=== PATIENT | male | born 1975 | race Caucasian/White ===

== ENCOUNTER 2017-02-01 06:02 | Emergency (ER) | payer OTHER ==
[~2017-02-01] VITALS: Ht 177.8 cm; Wt 75.0 kg
[~2017-02-01 06:02] MED LIST: DESYREL 50MG50 MG PO; MINIPRESS 1M1 MG/CAP PO; MOBIC15 MG PO; NEXIUM 40MG40 MG PO; PREDNISONE10 MG PO; PRIL40 PO; STIOLTO RESPIMAT4 GM IH; ULTRAM 50MG TAB50 MG PO; ZOFRAN8 MG PO
[2017-02-01 06:07] VITALS: TEMP 98
[2017-02-01] MEDS ORDERED: RT ADVAIR 528 DISKUS IH (06:15)
[2017-02-01] MEDS ORDERED: PROVENTIL0.09 MG/A1 IH (06:16)
[2017-02-01] MEDS ORDERED: ATIVAN 0.50.5 MG/TAB PO (06:17)
[2017-02-01 06:33] LABS: HEMATOCRIT 48.6 % (42.0-52.0); MEAN CELL VOLUME 90 fl (80.0-100.0); MEAN CORPUSCULAR HEMOGLOBIN 30 pg (27.0-31.0); MEAN CORPUSCULAR HGB CONC 33 g/dl (33.0-37.0); MEAN PLATELET VOLUME 8.8 fl (7.4-10.4); PLATELET COUNT 265 K/mm3 (130-400); RED BLOOD COUNT 5.39 M/mm3 (4.20-5.60); WHITE BLOOD COUNT 10.2 K/mm3 (4.8-10.8)
[2017-02-01 06:35] LABS: ADD PATHOLOGY DIFF REVIEW NO
[2017-02-01 06:42] LABS: ADJUSTED CALCIUM 8.8 mg/dL (8.4-10.2); ALANINE AMINOTRANSFERASE 70 U/L (21-72); ALBUMIN 5.5 gm/dL (3.5-5.0); ALKALINE PHOSPHATASE 73 U/L (50-136); ANION GAP 14 mmol/L (7-16); BLOOD UREA NITROGEN 6 mg/dL (9-20); CARBON DIOXIDE 25 mmol/L (22-30); CHLORIDE 95 mmol/L (98-107); CREATINE KINASE 84 U/L (55-170); CREATININE, serum 0.82 mg/dL (0.66-1.25); GLUCOSE 112 mg/dL (74-106); LIPASE 351 U/L (23-300); POTASSIUM 4.3 mmol/L (3.4-5.0); SODIUM 134 mmol/L (137-145); TOTAL PROTEIN 8.4 gm/dL (6.4-8.2)
[2017-02-01 06:53] LABS: B-TYPE NATRIURETIC PEPTIDE 65 pg/mL (0-125)
[2017-02-01 06:54] LABS: TROPONIN-I < 0.012 ng/mL (0.000-0.034)
[2017-02-01 07:33] LABS: BAND 12 % (0-10); EOSINOPHIL 6 % (0-4); LYMPHOCYTE 26 % (20.0-51.0); NEUTROPHILS 45 % (42.0-75.2); TOTAL CELLS COUNTED 100
[2017-02-01 07:34] LABS: PLATELET ESTIMATE NORMAL (NORMAL)
[2017-02-01] MEDS ORDERED: PROTONIX 40MG T40 MG PO (07:58)
[2017-02-01 08:05] VITALS: BP 129/81; PULSE 96
== END 2017-02-01 08:11 | disposition home or self-care (01) ==
LOC: COL.ER 06:02
PROVIDERS: Emergency Medicine
DX: K29.70 Gastritis, unspecified, without bleeding (principal); R06.00 Dyspnea, unspecified; J44.9 Chronic obstructive pulmonary disease, unspecified; F17.210 Nicotine dependence, cigarettes, uncomplicated; Z98.890 Other specified postprocedural states
CPT/HCPCS: C9113; J7030

== ENCOUNTER 2017-08-09 12:38 | Inpatient (IN) | payer OTHER ==
[~2017-08-09] VITALS: Ht 177.8 cm; Wt 75.0 kg
[~2017-08-09 12:38] MED LIST changes: +ATIVAN 0.50.5 MG/TAB PO; +PROTONIX 40MG T40 MG PO; +PROVENTIL0.09 MG/A1 IH; +RT ADVAIR 528 DISKUS IH
[2017-08-09 13:24] LABS: BASO # 0.1 (0.0-0.2); BASO % 0.6 % (0.0-2.0); EOS # 0.1 (0.0-0.7); EOS % 0.7 % (0-4.0); GRAN # 7.5 (1.4-6.5); GRAN % 69.9 % (42.2-75.2); HEMATOCRIT 43.4 % (42.0-52.0); HEMOGLOBIN 14.7 g/dl (13.5-18.0); LYMPH # 1.8 (1.2-3.4); LYMPH % 16.5 % (20.0-51.0); MEAN CELL VOLUME 86 fl (80.0-100.0); MEAN CORPUSCULAR HEMOGLOBIN 29 pg (27.0-31.0); MEAN CORPUSCULAR HGB CONC 34 g/dl (33.0-37.0); MEAN PLATELET VOLUME 8.5 fl (7.4-10.4); MONO # 1.3 (0.1-0.6); MONO % 11.8 % (1.7-9.3); PLATELET COUNT 242 K/mm3 (130-400); RED BLOOD COUNT 5.03 M/mm3 (4.20-5.60); REDCELL DISTRIBUTION WIDTH-CV 14.6 % (11.5-14.5)
[2017-08-09 13:26] LABS: INR 0.9 (0.8-3.0); PROTHROMBIN TIME 10.3 SECONDS (9.7-12.8)
[2017-08-09 13:29] LABS: PARTIAL THROMBOPLASTIN TIME 29.5 SECONDS (26.0-37.0)
[2017-08-09 13:32] LABS: ALANINE AMINOTRANSFERASE 107 U/L (21-72); ALBUMIN 4.3 gm/dL (3.5-5.0); ALKALINE PHOSPHATASE 71 U/L (50-136); ANION GAP 14 mmol/L (7-16); AST,SGOT 116 U/L (15-37); BILIRUBIN,TOTAL 1.2 mg/dL (0.0-1.0); BLOOD UREA NITROGEN 5 mg/dL (9-20); C-REACTIVE PROTEIN 0.7 mg/dL (0.0-0.9); CALCIUM 9.5 mg/dL (8.4-10.2); CARBON DIOXIDE 26 mmol/L (22-30); CHLORIDE 92 mmol/L (98-107); CREATININE, serum 0.61 mg/dL (0.66-1.25); GLUCOSE 105 mg/dL (74-106); POTASSIUM 3.5 mmol/L (3.4-5.0); SODIUM 132 mmol/L (137-145); TOTAL PROTEIN 7.4 gm/dL (6.4-8.2)
[2017-08-09 13:43] LABS: TROPONIN-I < 0.012 ng/mL (0.000-0.034)
[2017-08-09] MEDS ORDERED: ANORO IH (14:04)
[2017-08-09] MEDS ORDERED: ATIVAN 0.50.5 MG/TAB PO (16:31)
[2017-08-09 16:57] VITALS: BP 138/98; PULSE 62; TEMP 99
[2017-08-09 19:54] VITALS: BP 116/89; PULSE 72; TEMP 99
[2017-08-10 00:20] VITALS: BP 108/64; PULSE 72; TEMP 98.4
[2017-08-10 04:15] VITALS: BP 109/75; PULSE 88; TEMP 98.3
[2017-08-10 07:09] VITALS: BP 127/74; PULSE 81; TEMP 98.8
[2017-08-10 10:07] LABS: ALBUMIN 3.9 gm/dL (3.5-5.0); BILIRUBIN,TOTAL 1.9 mg/dL (0.0-1.0); CALCIUM 9.7 mg/dL (8.4-10.2); CREATININE, serum 0.64 mg/dL (0.66-1.25); POTASSIUM 4.3 mmol/L (3.4-5.0)
[2017-08-10 11:38] VITALS: BP 123/81; PULSE 73; TEMP 98.2
[2017-08-10 16:06] VITALS: BP 94/65; PULSE 81; TEMP 98.7
[2017-08-10 20:42] VITALS: BP 130/90; PULSE 75; TEMP 98
[2017-08-11 00:07] VITALS: BP 125/89; PULSE 89; TEMP 98.5
[2017-08-11 03:15] VITALS: BP 114/66; PULSE 97; TEMP 98.6
[2017-08-11 06:58] LABS: ALBUMIN 3.5 gm/dL (3.5-5.0); BILIRUBIN,TOTAL 1.5 mg/dL (0.0-1.0); CALCIUM 9.1 mg/dL (8.4-10.2); CREATININE, serum 0.73 mg/dL (0.66-1.25); POTASSIUM 4.2 mmol/L (3.4-5.0); TOTAL PROTEIN 6.1 gm/dL (6.4-8.2)
[2017-08-11 08:20] VITALS: BP 123/75; PULSE 79; TEMP 99.1
[2017-08-11] MEDS ORDERED: PROTONIX 40MG T40 MG PO (09:20)
== END 2017-08-11 12:00 | disposition home or self-care (01) | DRG 439 ==
LOC: COL.ER 12:38 → MEDICAL 15:17
PROVIDERS: Family Medicine; Physician Assistant
DX: K85.20 Alcohol induced acute pancreatitis without necrosis or infection (principal); E87.1 Hypo-osmolality and hyponatremia; K27.9 Peptic ulcer, site unspecified, unspecified as acute or chronic, without hemorrhage or perforation; F10.10 Alcohol abuse, uncomplicated; F17.210 Nicotine dependence, cigarettes, uncomplicated; F43.12 Post-traumatic stress disorder, chronic
CPT/HCPCS: 99223-AI; 99233-AI; J1170; J2270; J7120; Q9967

== ENCOUNTER 2018-01-05 14:57 | Observation (INO) | payer OTHER ==
[~2018-01-05] VITALS: Ht 177.8 cm; Wt 72.7 kg
[2018-01-05 00:23] VITALS: BP 140/59
[~2018-01-05 14:57] MED LIST changes: +ANORO IH; +NORCO 325 MG-51 TAB PO; +ZOFRAN 4MG T4 MG/TAB PO
[2018-01-05 15:41] LABS: BASO # 0.1 (0.0-0.2); BASO % 0.9 % (0.0-2.0); EOS # 0.5 (0.0-0.7); EOS % 4.6 % (0-4.0); GRAN # 5.5 (1.4-6.5); GRAN % 55.9 % (42.2-75.2); HEMATOCRIT 43.1 % (42.0-52.0); HEMOGLOBIN 14.5 g/dl (13.5-18.0); LYMPH # 2.7 (1.2-3.4); LYMPH % 27.9 % (20.0-51.0); MEAN CELL VOLUME 89 fl (80.0-100.0); MEAN CORPUSCULAR HEMOGLOBIN 30 pg (27.0-31.0); MEAN CORPUSCULAR HGB CONC 34 g/dl (33.0-37.0); MONO % 10.2 % (1.7-9.3); PLATELET COUNT 484 K/mm3 (130-400); RED BLOOD COUNT 4.86 M/mm3 (4.20-5.60); REDCELL DISTRIBUTION WIDTH-CV 13.9 % (11.5-14.5)
[2018-01-05 15:44] LABS: PROTHROMBIN TIME 10.9 SECONDS (9.7-12.8)
[2018-01-05 15:49] LABS: ALANINE AMINOTRANSFERASE 57 U/L (21-72); ALBUMIN 4.6 gm/dL (3.5-5.0); ALCOHOL(ethanol),MEDICAL 78 mg/dL; ALKALINE PHOSPHATASE 90 U/L (50-136); ANION GAP 11 mmol/L (7-16); AST,SGOT 43 U/L (15-37); BILIRUBIN,TOTAL 0.7 mg/dL (0.0-1.0); BLOOD UREA NITROGEN 4 mg/dL (9-20); CALCIUM 9.7 mg/dL (8.4-10.2); CARBON DIOXIDE 27 mmol/L (22-30); CHLORIDE 102 mmol/L (98-107); CREATINE KINASE 72 U/L (55-170); CREATININE, serum 0.59 mg/dL (0.66-1.25); GLUCOSE 94 mg/dL (74-106); SODIUM 139 mmol/L (137-145); TOTAL PROTEIN 7.6 gm/dL (6.4-8.2)
[2018-01-05 16:02] LABS: TROPONIN-I < 0.012 ng/mL (0.000-0.034)
[2018-01-05 16:16] LABS: LIPASE 23560 U/L (23-300)
[2018-01-05 17:53] VITALS: BP 134/90; PULSE 91; TEMP 98.6
[2018-01-05 19:30] VITALS: BP 160/108; PULSE 83; TEMP 98.7
[2018-01-06 01:13] VITALS: BP 122/7; BP 122/70; PULSE 96; TEMP 99.3
[2018-01-06 04:13] VITALS: BP 128/87; PULSE 99; TEMP 98.9
[2018-01-06 06:45] LABS: BASO # 0.1 (0.0-0.2); BASO % 0.7 % (0.0-2.0); EOS # 0.3 (0.0-0.7); GRAN # 7.3 (1.4-6.5); GRAN % 69.5 % (42.2-75.2); HEMATOCRIT 39.2 % (42.0-52.0); HEMOGLOBIN 12.8 g/dl (13.5-18.0); LYMPH # 1.7 (1.2-3.4); LYMPH % 16.5 % (20.0-51.0); MEAN CELL VOLUME 90 fl (80.0-100.0); MEAN CORPUSCULAR HEMOGLOBIN 29 pg (27.0-31.0); MEAN CORPUSCULAR HGB CONC 33 g/dl (33.0-37.0); MEAN PLATELET VOLUME 8.3 fl (7.4-10.4); MONO % 9.9 % (1.7-9.3); RED BLOOD COUNT 4.35 M/mm3 (4.20-5.60); REDCELL DISTRIBUTION WIDTH-CV 14.1 % (11.5-14.5)
[2018-01-06 07:02] LABS: PLATELET COUNT 357 K/mm3 (130-400)
[2018-01-06 07:11] LABS: ALANINE AMINOTRANSFERASE 48 U/L (21-72); ALBUMIN 3.7 gm/dL (3.5-5.0); ALKALINE PHOSPHATASE 74 U/L (50-136); ANION GAP 7 mmol/L (7-16); AST,SGOT 29 U/L (15-37); BILIRUBIN,TOTAL 0.9 mg/dL (0.0-1.0); BLOOD UREA NITROGEN 5 mg/dL (9-20); CALCIUM 8.6 mg/dL (8.4-10.2); CARBON DIOXIDE 26 mmol/L (22-30); CHLORIDE 106 mmol/L (98-107); CHOLESTEROL 136 mg/dL (120-200); CHOLESTEROL RISK RATIO 3.4; CREATININE, serum 0.67 mg/dL (0.66-1.25); GLUCOSE 84 mg/dL (74-106); HDL CHOLESTEROL 39 mg/dL; LDL CHOLESTEROL 47 mg/dL; POTASSIUM 4.1 mmol/L (3.4-5.0); SODIUM 138 mmol/L (137-145); TOTAL PROTEIN 6.2 gm/dL (6.4-8.2); TRIGLYCERIDE 251 mg/dL
[2018-01-06 07:20] LABS: TROPONIN-I < 0.012 ng/mL (0.000-0.034)
[2018-01-06 07:33] LABS: COLLECTION METHOD CLEAN CATCH
[2018-01-06 07:34] LABS: LIPASE 8867 U/L (23-300)
[2018-01-06 07:41] VITALS: BP 123/94; PULSE 93; TEMP 98.7
[2018-01-06 07:47] LABS: MUCOUS Present /lpf; PH 5 (5-8); SQUAMOUS EPITHELIAL None Seen /hpf; URINE APPEARANCE Clear; URINE BACTERIA Rare /hpf; URINE BILIRUBIN Negative (NEGATIVE); URINE BLOOD Negative (NEGATIVE); URINE COLOR Straw; URINE GLUCOSE Negative (NEGATIVE); URINE KETONE 1+ (NEGATIVE); URINE LEUKOCYTE ESTERASE Negative (NEGATIVE); URINE NITRATE Negative (NEGATIVE); URINE PROTEIN(semi-quant) Negative (NEGATIVE); URINE RBC None Seen /hpf; URINE UROBILINOGEN Negative (NEGATIVE)
[2018-01-06] MEDS ORDERED: MULTI VITAMINS1 TAB PO (08:54)
[2018-01-06] MEDS ORDERED: THIAMINE 1100 MG/TAB PO (08:54)
[2018-01-06] MEDS ORDERED: FOLIC ACID 11 MG/TA1 PO (08:54)
[2018-01-06 10:03] VITALS: BP 133/91; PULSE 86; TEMP 98.7
[2018-01-06 12:13] VITALS: BP 133/94; PULSE 86; TEMP 99
[2018-01-06 12:46] VITALS: BP 109/74; PULSE 82; TEMP 97.8
== END 2018-01-06 16:45 | disposition home or self-care (01) ==
LOC: COL.ER 14:57 → MEDICAL 16:34 → EDBEDREQ 17:05 → MEDICAL 01-06 16:45
PROVIDERS: Emergency Medicine; Physician Assistant
DX: R07.89 Other chest pain (principal); K85.90 Acute pancreatitis without necrosis or infection, unspecified; K76.0 Fatty (change of) liver, not elsewhere classified; F10.10 Alcohol abuse, uncomplicated; Y90.3 Blood alcohol level of 60-79 mg/100 ml; J43.9 Emphysema, unspecified; F17.210 Nicotine dependence, cigarettes, uncomplicated; Z23 Encounter for immunization
CPT/HCPCS: G0378; J1170; J1650; J2060; J2270; J2405; J3411; J7030; Q9967

== ENCOUNTER → 2018-04-22 | Outpatient (CLI) | payer OTHER ==
[~2018-04-22] MED LIST changes: +FOLIC ACID 11 MG/TA1 PO; +MULTI VITAMINS1 TAB PO; +THIAMINE 1100 MG/TAB PO
== END ==
LOC: COL.RAD 09:42
DX: K85.90 Acute pancreatitis without necrosis or infection, unspecified (principal)

== ENCOUNTER → 2018-05-02 | Outpatient (CLI) | payer OTHER | LOC: COL.RAD 06:41 | DX: R10.11 Right upper quadrant pain (principal) | CPT/HCPCS: A9537 ==

== ENCOUNTER 2018-09-09 13:18 | Inpatient (IN) | payer OTHER ==
[~2018-09-09] VITALS: Ht 177.8 cm; Wt 67.3 kg
[2018-09-09 14:07] LABS: BASO # 0.1 (0.0-0.2); BASO % 0.6 % (0.0-2.0); EOS # 0.3 (0.0-0.7); GRAN % 70.5 % (42.2-75.2); HEMATOCRIT 44.2 % (42.0-52.0); HEMOGLOBIN 14.9 g/dl (13.5-18.0); LYMPH % 15.3 % (20.0-51.0); MEAN CELL VOLUME 85 fl (80.0-100.0); MEAN CORPUSCULAR HEMOGLOBIN 29 pg (27.0-31.0); MEAN CORPUSCULAR HGB CONC 34 g/dl (33.0-37.0); MEAN PLATELET VOLUME 8.4 fl (7.4-10.4); MONO # 1.4 (0.1-0.6); PLATELET COUNT 338 K/mm3 (130-400); RED BLOOD COUNT 5.19 M/mm3 (4.20-5.60); REDCELL DISTRIBUTION WIDTH-CV 14.9 % (11.5-14.5)
[2018-09-09 14:27] LABS: ALANINE AMINOTRANSFERASE 44 U/L (21-72); ALBUMIN 4.4 gm/dL (3.5-5.0); ALKALINE PHOSPHATASE 137 U/L (50-136); ANION GAP 12 mmol/L (7-16); AST,SGOT 78 U/L (15-37); BILIRUBIN,TOTAL 0.6 mg/dL (0.0-1.0); BLOOD UREA NITROGEN 6 mg/dL (9-20); C-REACTIVE PROTEIN 0.9 mg/dL (0.0-0.9); CALCIUM 9.4 mg/dL (8.4-10.2); CARBON DIOXIDE 26 mmol/L (22-30); CHLORIDE 95 mmol/L (98-107); CREATININE, serum 0.54 (0.66-1.25); GLUCOSE 85 mg/dL (74-106); LIPASE 1040 U/L (23-300); SODIUM 133 mmol/L (137-145); TOTAL PROTEIN 7.4 gm/dL (6.4-8.2)
[2018-09-09 14:28] LABS: ALCOHOL(ethanol),MEDICAL < 10 mg/dL
[2018-09-09 14:36] LABS: TROPONIN-I < 0.012 ng/mL (0.000-0.035)
[2018-09-09 17:18] VITALS: BP 158/92; PULSE 72; TEMP 98.3
[2018-09-09 19:30] VITALS: BP 149/96; PULSE 86; TEMP 98.3
--- NOTE | 2018-09-09 20:00 | NUR ---
Pt up to room 310 at 1745. Med rec, allergies and admission completed. Pt c/o of abdominal pain over entire abdomen. Rates pain 11/01. RAC IV patent, IVF fluids started at 200 ml/hr. 4 MG morphine administered per MAR. Pt on room air. Denies chest pain, SOB, dizziness, vomiting, some nausea. Pt independent in room. No skin issues noted. Denied nicotine patch. No other needs at this time. Call light within reach. Report given to JOVITA Angel to resume care.
[2018-09-09 23:30] VITALS: BP 140/93; PULSE 72; TEMP 97.5
--- NOTE | 2018-09-10 02:47 | NUR ---
Pt has had a quiet night up thru now. He is up in room to BR without assist. States he has had rested in short intervals. IVF cont at 200mL/hr in R AC. Call light in reach.
[2018-09-10 03:17] VITALS: BP 131/92; PULSE 94; TEMP 98.2
--- NOTE | 2018-09-10 04:30 | NUR ---
Pt calls and request med for abdominal pain rated 7/10. Morphine 4mg IV given.
[2018-09-10 06:28] LABS: BASO # 0.1 (0.0-0.2); BASO % 0.6 % (0.0-2.0); EOS # 0.2 (0.0-0.7); GRAN # 7.9 (1.4-6.5); GRAN % 75.7 % (42.2-75.2); HEMATOCRIT 45.3 % (42.0-52.0); LYMPH # 1.1 (1.2-3.4); LYMPH % 10.7 % (20.0-51.0); MEAN CELL VOLUME 86 fl (80.0-100.0); MEAN CORPUSCULAR HEMOGLOBIN 29 pg (27.0-31.0); MEAN CORPUSCULAR HGB CONC 33 g/dl (33.0-37.0); MEAN PLATELET VOLUME 8.7 fl (7.4-10.4); MONO # 1.1 (0.1-0.6); MONO % 10.6 % (1.7-9.3); PLATELET COUNT 309 K/mm3 (130-400); RED BLOOD COUNT 5.26 M/mm3 (4.20-5.60); REDCELL DISTRIBUTION WIDTH-CV 14.7 % (11.5-14.5)
[2018-09-10 06:38] LABS: CALCIUM 8.7 mg/dL (8.4-10.2); CREATININE, serum 0.59 (0.66-1.25); POTASSIUM 3.7 mmol/L (3.4-5.0)
[2018-09-10 08:15] VITALS: BP 133/89; PULSE 89; TEMP 98.1
--- NOTE | 2018-09-10 08:30 | NUR ---
Assessment complete. Pt sitting up in bed, A&O x 4. Breath sounds CTAB. BS active x 4. Pt reports pain to epigastric region 7 out of 10 on pain scale, PRN pain medication administered per orders. IVF's infusing per orders through right AC site without s/s of complications. POC reviewed with pt. No further needs reported. Call light in reach.
--- NOTE | 2018-09-10 10:55 | NUR ---
Plan: Patient plans t retrun home with [facility] as care support . Assess: Sw met with patient and in room. Patient gave verbal auth. to speak in front of . Patient reports that they reside locally and the PCP is Dr. Cerda. Patient reports that her uses [facility] for RX, and DPOA is . Patient denies home health care. Patient denies needing any HHS. Action: SW edcuated patient and on resources. NO additional needs identified. is to transport patient home.
[2018-09-10 12:49] VITALS: BP 141/96; PULSE 88; TEMP 98.6
[2018-09-10 16:11] VITALS: BP 139/92; PULSE 78; TEMP 98.8
--- NOTE | 2018-09-10 18:45 | NUR ---
Report with JOVITA Mendoza. Pt sitting up in bed, requests pain medication for pain 8 out of 10 in epigastric region. Medication administered per orders. Pt has had water, coffee, jello and broth, denies c/o following advancing diet. IVF's infusing per orders through right AC site without s/s of complications. No further needs reported. Call light in reach.
[2018-09-10 20:01] VITALS: BP 145/100; PULSE 91; TEMP 99.6
--- NOTE | 2018-09-10 20:34 | NUR ---
Resting in bed. Assessment complete. Lungs clear. Heart sounds normal. Bowels active x4. Pulses strong throughout. No edema noted. Rating ABD pain 4/10. Denies needs at this time. Call light in reach.
--- NOTE | 2018-09-10 23:36 | NUR ---
Resting in bed. Denies needs. Call light in reach.
[2018-09-11 00:43] VITALS: BP 133/98; PULSE 87; TEMP 98.4
--- NOTE | 2018-09-11 02:00 | NUR ---
Out getting coffee. Denies needs.
[2018-09-11 05:08] VITALS: BP 131/81; PULSE 94; TEMP 98.1
--- NOTE | 2018-09-11 05:47 | NUR ---
Patient required x1 dose of morphine for ABD pain. Otherwise uneventful night. Resting in bed this AM. Denies needs. Call light in reach.
[2018-09-11 06:19] LABS: BASO # 0.1 (0.0-0.2); BASO % 0.7 % (0.0-2.0); EOS # 0.3 (0.0-0.7); EOS % 3.4 % (0-4.0); GRAN # 5.5 (1.4-6.5); GRAN % 65.2 % (42.2-75.2); HEMATOCRIT 43.8 % (42.0-52.0); HEMOGLOBIN 14.2 g/dl (13.5-18.0); LYMPH # 1.6 (1.2-3.4); LYMPH % 18.9 % (20.0-51.0); MEAN CELL VOLUME 87 fl (80.0-100.0); MEAN CORPUSCULAR HEMOGLOBIN 28 pg (27.0-31.0); MEAN CORPUSCULAR HGB CONC 32 g/dl (33.0-37.0); MEAN PLATELET VOLUME 9.4 fl (7.4-10.4); MONO % 11.4 % (1.7-9.3); PLATELET COUNT 278 K/mm3 (130-400); RED BLOOD COUNT 5.04 M/mm3 (4.20-5.60); REDCELL DISTRIBUTION WIDTH-CV 14.7 % (11.5-14.5)
[2018-09-11 06:28] LABS: ALBUMIN 3.6 gm/dL (3.5-5.0); BILIRUBIN,TOTAL 0.9 mg/dL (0.0-1.0); CALCIUM 8.4 mg/dL (8.4-10.2); CREATININE, serum 0.58 (0.66-1.25); TOTAL PROTEIN 6.3 gm/dL (6.4-8.2)
--- NOTE | 2018-09-11 06:44 | NUR ---
Report given to JOVITA Barney.
--- NOTE | 2018-09-11 08:30 | NUR ---
Assessment complete. Pt ambulating in room and hallway, denies pain or needs at this time. IVF's infusing per orders through right AC site without s/s of complications. Pt anxious for discharge today. POC reviewed with pt. Call light in reach.
[2018-09-11 08:38] VITALS: BP 138/87; PULSE 92; TEMP 98.7
--- NOTE | 2018-09-11 10:45 | NUR ---
Pt reports eating a full breakfast, denies nausea or worsening pain, "feels ready to go home." Doctor notified.
--- NOTE | 2018-09-11 12:50 | NUR ---
Discharge instructions reviewed with pt regarding diet recommendations and follow-up appointment. Pt verbalizes understanding, discharged home, ambulates out of facility accompanied by this nurse and pt's .
== END 2018-09-11 13:00 | disposition home or self-care (01) | DRG 439 ==
LOC: COL.ER 13:18 → MEDICAL 15:26
PROVIDERS: Nurse Practitioner Family; Physician Assistant; ADMIT Student in an Organized Health Care Education/Training Program
DX: K85.20 Alcohol induced acute pancreatitis without necrosis or infection (principal); K86.3 Pseudocyst of pancreas; J44.9 Chronic obstructive pulmonary disease, unspecified; Z90.49 Acquired absence of other specified parts of digestive tract; K86.1 Other chronic pancreatitis; F17.210 Nicotine dependence, cigarettes, uncomplicated; K21.9 Gastro-esophageal reflux disease without esophagitis
CPT/HCPCS: 99222-AI; 99231-AI; 99239; C9113; J1650; J2270; J2405; J7030; Q9967

== ENCOUNTER 2018-09-20 12:32 | Emergency (ER) | payer OTHER ==
[~2018-09-20] VITALS: Ht 177.8 cm; Wt 66.8 kg
[2018-09-20 12:42] VITALS: TEMP 97
[2018-09-20] MEDS ORDERED: ADVIL200 MG PO (13:08)
[2018-09-20 13:10] LABS: BASO # 0.1 (0.0-0.2); BASO % 1.1 % (0.0-2.0); EOS # 0.2 (0.0-0.7); EOS % 1.5 % (0-4.0); GRAN # 8.3 (1.4-6.5); GRAN % 65.7 % (42.2-75.2); HEMATOCRIT 45.5 % (42.0-52.0); LYMPH # 2.5 (1.2-3.4); LYMPH % 20.2 % (20.0-51.0); MEAN CELL VOLUME 85 fl (80.0-100.0); MEAN CORPUSCULAR HEMOGLOBIN 28 pg (27.0-31.0); MEAN CORPUSCULAR HGB CONC 33 g/dl (33.0-37.0); MEAN PLATELET VOLUME 8.2 fl (7.4-10.4); MONO # 1.4 (0.1-0.6); PLATELET COUNT 421 K/mm3 (130-400); RED BLOOD COUNT 5.37 M/mm3 (4.20-5.60)
[2018-09-20 13:19] LABS: ALANINE AMINOTRANSFERASE 63 U/L (21-72); ALBUMIN 4.6 gm/dL (3.5-5.0); ALKALINE PHOSPHATASE 129 U/L (50-136); ANION GAP 15 mmol/L (7-16); AST,SGOT 114 U/L (15-37); BILIRUBIN,TOTAL 0.7 mg/dL (0.0-1.0); BLOOD UREA NITROGEN 4 mg/dL (9-20); C-REACTIVE PROTEIN 0.9 mg/dL (0.0-0.9); CALCIUM 9.4 mg/dL (8.4-10.2); CARBON DIOXIDE 23 mmol/L (22-30); CHLORIDE 96 mmol/L (98-107); CREATININE, serum 0.55 (0.66-1.25); GLUCOSE 81 mg/dL (74-106); LIPASE 252 U/L (23-300); POTASSIUM 4.3 mmol/L (3.4-5.0); SODIUM 133 mmol/L (137-145); TOTAL PROTEIN 7.6 gm/dL (6.4-8.2)
[2018-09-20 13:34] LABS: TROPONIN-I < 0.012 ng/mL (0.000-0.035)
[2018-09-20 14:40] LABS: COLLECTION METHOD CLEAN CATCH
[2018-09-20 14:47] LABS: PH 5 (5-8); SQUAMOUS EPITHELIAL None Seen /hpf; URINE APPEARANCE Clear; URINE BACTERIA None Seen /hpf; URINE BILIRUBIN Negative (NEGATIVE); URINE BLOOD Negative (NEGATIVE); URINE COLOR Straw; URINE GLUCOSE Negative (NEGATIVE); URINE KETONE Negative (NEGATIVE); URINE LEUKOCYTE ESTERASE Negative (NEGATIVE); URINE NITRATE Negative (NEGATIVE); URINE PROTEIN(semi-quant) Negative (NEGATIVE); URINE RBC 0-2 /hpf; URINE UROBILINOGEN Negative (NEGATIVE)
[2018-09-20] MEDS ORDERED: ZOFRAN 4MG T4 MG/TAB PO (16:22)
[2018-09-20] MEDS ORDERED: NORCO 325 MG-51 TAB PO (16:22)
[2018-09-20 17:15] VITALS: BP 152/109; PULSE 96
== END 2018-09-20 17:17 | disposition home or self-care (01) ==
LOC: COL.ER 12:32
PROVIDERS: Family Medicine
DX: R10.13 Epigastric pain (principal); F17.210 Nicotine dependence, cigarettes, uncomplicated; F10.10 Alcohol abuse, uncomplicated; Z87.19 Personal history of other diseases of the digestive system; Y90.9 Presence of alcohol in blood, level not specified
CPT/HCPCS: J2270; J2405; J7030; Q9967

== ENCOUNTER 2018-10-14 05:58 | Day surgery (SDC) | payer OTHER ==
[~2018-10-14] VITALS: Ht 177.8 cm; Wt 66.9 kg
[~2018-10-14 05:58] MED LIST changes: +ADVIL200 MG PO
[2018-10-14 06:55] VITALS: BP 117/88; PULSE 101; TEMP 98.3
[2018-10-14 07:50] VITALS: BP 119/83; PULSE 98; TEMP 98.2
[2018-10-14 08:05] VITALS: BP 112/83; PULSE 97
[2018-10-14 08:15] VITALS: BP 105/86; PULSE 94
[2018-10-14 08:30] VITALS: BP 127/88; PULSE 99
[2018-10-14 08:39] VITALS: BP 103/67; PULSE 89
--- NOTE | 2018-10-14 09:25 | NUR ---
PT RETURNED FROM ENDOSCOPY TREATMENT ROOM INTO BAY 1 PER CART. PT A/OX3. DENIES PAIN AND OR NAUSEA. SITTING UP IN CHAIR. VSS. DENIES SORE THROAT. REQUESTS COFFEE. TOLERATE SIPS WELL. WILL MONITOR
--- NOTE | 2018-10-14 09:31 | NUR ---
PT UP AND AMBULATED TO THE BATHROOM. TOLERATED ACTIVITY WELL. DENIES WANTING ANYTHING FURTHER TO EAT, DID REQUEST MORE HOT COFFEE. DC'D IV TO RIGHT FOREARM, PT TOLERATED WELL. DISCHARGE INSTRUCTIONS GIVEN TO PT, PT VOICES UNDESTANDING. QUESTIONS ANSWERED WITH UNDERSTANDING. , NATY CALLED AND MET PATIENT AT PATIENT ENTRANCE. PT AMBULATED AND DC'D TO FAMILY VEHICLE. VSS, DENIES PAIN OR NAUSEA.
== END 2018-10-14 09:55 | disposition home or self-care (01) ==
LOC: SDCO 05:58
DX: D12.3 Benign neoplasm of transverse colon (principal); K64.1 Second degree hemorrhoids; R10.13 Epigastric pain; J43.9 Emphysema, unspecified; Z90.49 Acquired absence of other specified parts of digestive tract; Z79.899 Other long term (current) drug therapy
CPT/HCPCS: J2250; J3010; J7030

== ENCOUNTER 2018-11-14 10:17 | Emergency (ER) | payer OTHER ==
[~2018-11-14] VITALS: Ht 177.8 cm; Wt 64.5 kg
[2018-11-14 10:21] VITALS: TEMP 98.3
[2018-11-14 10:39] LABS: HEMATOCRIT 46.3 % (42.0-52.0); HEMOGLOBIN 15.4 g/dl (13.5-18.0); MEAN CELL VOLUME 87 fl (80.0-100.0); MEAN CORPUSCULAR HEMOGLOBIN 29 pg (27.0-31.0); MEAN CORPUSCULAR HGB CONC 33 g/dl (33.0-37.0); MEAN PLATELET VOLUME 8.1 fl (7.4-10.4); PLATELET COUNT 398 K/mm3 (130-400); RED BLOOD COUNT 5.34 M/mm3 (4.20-5.60); REDCELL DISTRIBUTION WIDTH-CV 15.3 % (11.5-14.5)
[2018-11-14 10:50] LABS: ALANINE AMINOTRANSFERASE 16 U/L (21-72); ALBUMIN 4.7 gm/dL (3.5-5.0); ALKALINE PHOSPHATASE 78 U/L (50-136); ANION GAP 11 mmol/L (7-16); AST,SGOT 29 U/L (15-37); BLOOD UREA NITROGEN 4 mg/dL (9-20); CALCIUM 9.6 mg/dL (8.4-10.2); CARBON DIOXIDE 29 mmol/L (22-30); CHLORIDE 95 mmol/L (98-107); CREATININE, serum 0.55 (0.66-1.25); GLUCOSE 118 mg/dL (74-106); POTASSIUM 3.9 mmol/L (3.4-5.0); SODIUM 136 mmol/L (137-145); TOTAL PROTEIN 7.5 gm/dL (6.4-8.2)
[2018-11-14 10:56] LABS: LYMPHOCYTE 15 % (20.0-51.0); NEUTROPHILS 77 % (42.0-75.2); PLATELET ESTIMATE NORMAL (NORMAL)
[2018-11-14 11:01] LABS: TROPONIN-I < 0.012 ng/mL (0.000-0.035)
[2018-11-14 11:13] LABS: LIPASE 9028 U/L (23-300)
[2018-11-14] MEDS ORDERED: NORCO 325 MG-51 TAB PO (14:22)
[2018-11-14 14:47] VITALS: BP 137/99; PULSE 91
== END 2018-11-14 14:47 | disposition home or self-care (01) ==
LOC: COL.ER 10:17
PROVIDERS: Nurse Practitioner
DX: K85.90 Acute pancreatitis without necrosis or infection, unspecified (principal); F43.10 Post-traumatic stress disorder, unspecified; Z98.890 Other specified postprocedural states; F17.210 Nicotine dependence, cigarettes, uncomplicated
CPT/HCPCS: C9113; J2270; J2405; J7030

== ENCOUNTER 2018-12-08 05:54 | Emergency (ER) | payer OTHER ==
[~2018-12-08] VITALS: Ht 177.8 cm; Wt 66.8 kg
[2018-12-08 05:56] VITALS: TEMP 97.2
[2018-12-08 06:30] LABS: BASO # 0.1 (0.0-0.2); BASO % 0.4 % (0.0-2.0); EOS # 0.1 (0.0-0.7); EOS % 0.6 % (0-4.0); GRAN # 13.1 (1.4-6.5); GRAN % 80.4 % (42.2-75.2); HEMATOCRIT 46.4 % (42.0-52.0); LYMPH # 1.8 (1.2-3.4); MEAN CELL VOLUME 88 fl (80.0-100.0); MEAN CORPUSCULAR HEMOGLOBIN 29 pg (27.0-31.0); MEAN CORPUSCULAR HGB CONC 32 g/dl (33.0-37.0); MEAN PLATELET VOLUME 8.3 fl (7.4-10.4); MONO # 1.2 (0.1-0.6); MONO % 7.2 % (1.7-9.3); PLATELET COUNT 412 K/mm3 (130-400); RED BLOOD COUNT 5.25 M/mm3 (4.20-5.60); REDCELL DISTRIBUTION WIDTH-CV 14.7 % (11.5-14.5)
[2018-12-08 06:37] LABS: ALBUMIN 4.7 gm/dL (3.5-5.0); BILIRUBIN,TOTAL 0.6 mg/dL (0.0-1.0); CALCIUM 9.5 mg/dL (8.4-10.2); CREATININE, serum 0.54 (0.66-1.25); TOTAL PROTEIN 7.7 gm/dL (6.4-8.2)
[2018-12-08 07:09] LABS: C-REACTIVE PROTEIN 0.7 mg/dL (0.0-0.9)
[2018-12-08 08:34] LABS: INR 0.9 (0.8-3.0); PROTHROMBIN TIME 10.7 SECONDS (9.7-12.8)
[2018-12-08 08:36] LABS: PARTIAL THROMBOPLASTIN TIME 28.5 SECONDS (26.0-37.0)
[2018-12-08 09:45] VITALS: BP 147/106; PULSE 91
== END 2018-12-08 09:58 | disposition short-term general hospital (02) ==
LOC: COL.ER 05:54
PROVIDERS: Emergency Medicine
DX: K85.90 Acute pancreatitis without necrosis or infection, unspecified (principal); K86.3 Pseudocyst of pancreas; I81 Portal vein thrombosis; F17.210 Nicotine dependence, cigarettes, uncomplicated; Z87.442 Personal history of urinary calculi; Z90.49 Acquired absence of other specified parts of digestive tract
CPT/HCPCS: J1170; J1644; J2270; J2405; J7030; Q9967

== ENCOUNTER → 2019-01-31 | Outpatient (CLI) | payer OTHER | LOC: COL.RAD 10:01 | DX: K85.20 Alcohol induced acute pancreatitis without necrosis or infection (principal); K63.89 Other specified diseases of intestine; N32.89 Other specified disorders of bladder | CPT/HCPCS: Q9967 ==

== ENCOUNTER → 2019-05-08 | Outpatient (CLI) | payer OTHER | LOC: COL.RAD 11:12 | DX: K85.20 Alcohol induced acute pancreatitis without necrosis or infection (principal); N40.0 Benign prostatic hyperplasia without lower urinary tract symptoms; N32.89 Other specified disorders of bladder | CPT/HCPCS: Q9967 ==

== ENCOUNTER 2019-11-14 12:39 | Observation (INO) | payer OTHER ==
[~2019-11-14] VITALS: Ht 177.8 cm; Wt 69.1 kg
[2019-11-14 13:11] LABS: BASO # 0.1 (0.0-0.2); BASO % 0.6 % (0.0-2.0); EOS # 0.5 (0.0-0.7); EOS % 2.7 % (0-4.0); GRAN % 67.3 % (42.2-75.2); HEMATOCRIT 47.1 % (42.0-52.0); HEMOGLOBIN 15.1 g/dl (13.5-18.0); LYMPH # 3.7 (1.2-3.4); LYMPH % 20.6 % (20.0-51.0); MEAN CELL VOLUME 81 fl (80.0-100.0); MEAN CORPUSCULAR HEMOGLOBIN 26 pg (27.0-31.0); MEAN CORPUSCULAR HGB CONC 32 g/dl (33.0-37.0); MONO # 1.5 (0.1-0.6); MONO % 8.2 % (1.7-9.3); PLATELET COUNT 405 K/mm3 (130-400); REDCELL DISTRIBUTION WIDTH-CV 15.5 % (11.5-14.5)
[2019-11-14 13:21] LABS: INR 1.1 (0.8-3.0); PROTHROMBIN TIME 11.9 SECONDS (9.7-12.8)
[2019-11-14 13:24] LABS: PARTIAL THROMBOPLASTIN TIME 36.3 SECONDS (26.0-37.0)
[2019-11-14 13:28] LABS: ALANINE AMINOTRANSFERASE 21 U/L (4-49); ALBUMIN 4.9 gm/dL (3.5-5.0); ALKALINE PHOSPHATASE 89 U/L (50-136); ANION GAP 11 mmol/L (7-16); AST,SGOT 39 U/L (15-37); BLOOD UREA NITROGEN 8 mg/dL (9-20); C-REACTIVE PROTEIN 1.5 mg/dL (0.0-0.9); CALCIUM 9.7 mg/dL (8.4-10.2); CARBON DIOXIDE 27 mmol/L (22-30); CHLORIDE 96 mmol/L (98-107); CREATININE, serum 0.66 (0.66-1.25); GLUCOSE 104 mg/dL (74-106); LIPASE 633 U/L (23-300); SODIUM 134 mmol/L (137-145); TOTAL PROTEIN 8.5 gm/dL (6.4-8.2)
[2019-11-14 13:40] LABS: TROPONIN-I < 0.012 ng/mL (0.000-0.035)
[2019-11-14 17:10] VITALS: BP 127/73; PULSE 85
--- NOTE | 2019-11-14 18:52 | NUR ---
Report received from JOVITA Spencer. Pt lying in bed, denies needs at this time. Will continue to monitor.
[2019-11-14 20:04] LABS: COLLECTION METHOD CLEAN CATCH
[2019-11-14 20:13] LABS: PH 6 (5-8); SQUAMOUS EPITHELIAL 0-2 /hpf; URINE APPEARANCE Clear; URINE BACTERIA None Seen /hpf; URINE BILIRUBIN Negative (NEGATIVE); URINE BLOOD Negative (NEGATIVE); URINE COLOR Yellow; URINE GLUCOSE Negative (NEGATIVE); URINE KETONE Negative (NEGATIVE); URINE LEUKOCYTE ESTERASE Negative (NEGATIVE); URINE NITRATE Negative (NEGATIVE); URINE PROTEIN(semi-quant) Negative (NEGATIVE); URINE RBC 0-2 /hpf; URINE UROBILINOGEN Negative (NEGATIVE)
--- NOTE | 2019-11-14 20:16 | NUR ---
Pt assessment completed and charted, meds/allergies/pharmacy all completed. Pt A&O, independent in room, on room air, breathing is even and unlabored, LS cta, BS active X4, pulses strong bilateraly, HRRR, no edema noted, no skin issues noted. RAC IV w/ NS at 125ml/hr running w/o issue. Pt c/o or RUQ pain, rating 7/10, received dilaudid PRN. Clear liquid tray provided for dinner, tolerated well. Abdomen soft to touch. No other pain expressed, denies SOB, dizziness, N/V/D, chest pain, numbness or tingling at this time. Call light within reach. Report given to JOVITA Robert.
[2019-11-14 20:33] VITALS: BP 96/67; PULSE 73; TEMP 98.2
--- NOTE | 2019-11-14 20:53 | NUR ---
Assessment complete. Pt resting in bed, reports pain 7/10 in abdomen. PRN dilaudid administered. Bowel sounds active all quadrants. Pt denies nausea. NS running at 125 ml/hr to rigth AC. Denies other needs at this time. Will continue to monitor.
[2019-11-15 00:39] VITALS: BP 112/68; PULSE 88; TEMP 97.8
[2019-11-15 03:50] VITALS: BP 99/63; PULSE 84; TEMP 98.1
--- NOTE | 2019-11-15 05:28 | NUR ---
Pt slept for a few hours early in the night. Prior to sleeping, pt reported severe pain to epigastric area relieved by IV dilaudid. Since dilaudid administration around 2100 last night, no complaints of pain. Ambulates independently in the room. Tolerating PO fluids well. NS still running at 125 ml/hr. Pt sitting up in bed drinking coffee at this time, continues to deny pain.
[2019-11-15 07:17] VITALS: BP 96/68; PULSE 81; TEMP 98
--- NOTE | 2019-11-15 07:48 | NUR ---
PT IS LAYING IN BED AT THIS TIME. HAS C/O SHARP PAIN IN EPIGASTRIC REGION INTERMITTENTLY. ASSESSMENT COMPLETED, VSS, CALL LIGHT WITHIN REACH. TOLERATING CLEAR LIQUIDS, NO N/V/D. NO FURTHER CONCERNS.
[2019-11-15 07:50] LABS: BASO # 0.1 (0.0-0.2); BASO % 0.8 % (0.0-2.0); EOS # 0.6 (0.0-0.7); EOS % 5.3 % (0-4.0); GRAN # 6.7 (1.4-6.5); GRAN % 63.3 % (42.2-75.2); HEMATOCRIT 41.5 % (42.0-52.0); HEMOGLOBIN 13.4 g/dl (13.5-18.0); LYMPH # 2.1 (1.2-3.4); LYMPH % 19.8 % (20.0-51.0); MEAN CELL VOLUME 82 fl (80.0-100.0); MEAN CORPUSCULAR HEMOGLOBIN 27 pg (27.0-31.0); MEAN CORPUSCULAR HGB CONC 32 g/dl (33.0-37.0); MEAN PLATELET VOLUME 7.9 fl (7.4-10.4); MONO # 1.1 (0.1-0.6); MONO % 10.2 % (1.7-9.3); RED BLOOD COUNT 5.04 M/mm3 (4.20-5.60); REDCELL DISTRIBUTION WIDTH-CV 15.5 % (11.5-14.5)
[2019-11-15 07:51] LABS: PLATELET COUNT 296 K/mm3 (130-400)
[2019-11-15 08:06] LABS: CALCIUM 8.7 mg/dL (8.4-10.2); CHOLESTEROL RISK RATIO 3.8; CREATININE, serum 0.66 (0.66-1.25); POTASSIUM 4.3 mmol/L (3.4-5.0)
--- NOTE | 2019-11-15 11:43 | NUR ---
First visit from the sole cementer. No needs right now.
[2019-11-15 12:01] VITALS: BP 103/70; PULSE 78; TEMP 98.1
[2019-11-15] MEDS ORDERED: ZOFRAN 4MG T4 MG/TAB PO ×2 (13:36)
== END 2019-11-15 15:15 | disposition home or self-care (01) ==
LOC: COL.ER 12:39 → MEDICAL 14:53
PROVIDERS: Family Medicine; ADMIT Hospitalist
DX: K85.90 Acute pancreatitis without necrosis or infection, unspecified (principal); J44.9 Chronic obstructive pulmonary disease, unspecified; F41.9 Anxiety disorder, unspecified; K21.9 Gastro-esophageal reflux disease without esophagitis; F17.210 Nicotine dependence, cigarettes, uncomplicated; Z90.49 Acquired absence of other specified parts of digestive tract
CPT/HCPCS: C9113; G0378; J1170; J1650; J2550; J7030; J7120; Q9967

== ENCOUNTER → 2019-12-21 | Outpatient (CLI) | payer OTHER | LOC: COL.RAD 10:26 | DX: K85.90 Acute pancreatitis without necrosis or infection, unspecified (principal); K86.1 Other chronic pancreatitis; K86.3 Pseudocyst of pancreas; K29.80 Duodenitis without bleeding; K83.8 Other specified diseases of biliary tract; Z96.89 Presence of other specified functional implants; Z90.49 Acquired absence of other specified parts of digestive tract | CPT/HCPCS: Q9967 ==

== ENCOUNTER 2020-01-18 11:24 | Inpatient (IN) | payer OTHER ==
[~2020-01-18] VITALS: Ht 177.8 cm; Wt 68.2 kg
[2020-01-18 12:17] LABS: BASO # 0.1 (0.0-0.2); BASO % 0.7 % (0.0-2.0); BILIRUBIN,TOTAL 1.2 mg/dL (0.0-1.0); CALCIUM 10.1 mg/dL (8.4-10.2); CREATININE, serum 0.76 (0.66-1.25); EOS # 0.2 (0.0-0.7); EOS % 1.6 % (0-4.0); GRAN # 8.7 (1.4-6.5); GRAN % 69.2 % (42.2-75.2); HEMATOCRIT 46.1 % (42.0-52.0); HEMOGLOBIN 14.6 g/dl (13.5-18.0); LYMPH # 2.1 (1.2-3.4); MEAN CELL VOLUME 78 fl (80.0-100.0); MEAN CORPUSCULAR HEMOGLOBIN 25 pg (27.0-31.0); MEAN CORPUSCULAR HGB CONC 32 g/dl (33.0-37.0); MEAN PLATELET VOLUME 8.8 fl (7.4-10.4); MONO # 1.4 (0.1-0.6); PLATELET COUNT 457 K/mm3 (130-400); POTASSIUM 3.5 mmol/L (3.4-5.0); RED BLOOD COUNT 5.88 M/mm3 (4.20-5.60); REDCELL DISTRIBUTION WIDTH-CV 15.7 % (11.5-14.5); TOTAL PROTEIN 8.9 gm/dL (6.4-8.2)
[2020-01-18] MEDS ORDERED: NORCO 325 MG-51 TAB PO (12:22)
[2020-01-18 17:32] VITALS: BP 132/90; PULSE 93; TEMP 98.1
[2020-01-18 20:33] VITALS: BP 123/74; PULSE 88; TEMP 99.2
--- NOTE | 2020-01-18 21:05 | NUR ---
Pt. sitting up in bed at this time. Pt. is A&OX3, assessment complete. IV to lt. forearm patent. IV fluids infusing per orders. Pt. reports vomiting, gave phenergan per orders. Pt. denies pain or other needs, call light within reach.
[2020-01-19 00:08] VITALS: BP 119/77; PULSE 75; TEMP 98.2
[2020-01-19 05:07] VITALS: BP 98/63; PULSE 80; TEMP 98.6
[2020-01-19 05:44] LABS: BASO # 0.1 (0.0-0.2); BASO % 0.8 % (0.0-2.0); EOS # 0.2 (0.0-0.7); GRAN # 6.3 (1.4-6.5); GRAN % 62.2 % (42.2-75.2); HEMATOCRIT 38.8 % (42.0-52.0); LYMPH # 2.3 (1.2-3.4); LYMPH % 22.4 % (20.0-51.0); MEAN CELL VOLUME 78 fl (80.0-100.0); MEAN CORPUSCULAR HGB CONC 31 g/dl (33.0-37.0); MEAN PLATELET VOLUME 8.5 fl (7.4-10.4); MONO # 1.2 (0.1-0.6); MONO % 12.2 % (1.7-9.3); RED BLOOD COUNT 4.95 M/mm3 (4.20-5.60); REDCELL DISTRIBUTION WIDTH-CV 15.3 % (11.5-14.5)
[2020-01-19 05:54] LABS: ALBUMIN 3.9 gm/dL (3.5-5.0); BILIRUBIN,TOTAL 0.7 mg/dL (0.0-1.0); CALCIUM 8.5 mg/dL (8.4-10.2); CREATININE, serum 0.64 (0.66-1.25); MAGNESIUM 2.2 mg/dL (1.6-2.3); POTASSIUM 3.5 mmol/L (3.4-5.0); TOTAL PROTEIN 6.7 gm/dL (6.4-8.2)
[2020-01-19 06:01] LABS: MEAN CORPUSCULAR HEMOGLOBIN 24 pg (27.0-31.0)
[2020-01-19 06:03] LABS: HEMOGLOBIN 12.1 g/dl (13.5-18.0); PLATELET COUNT 345 K/mm3 (130-400)
[2020-01-19 08:00] VITALS: BP 109/78; PULSE 92; TEMP 98
--- NOTE | 2020-01-19 10:33 | NUR ---
GI CONSULT CALLED TO DR. HILTON FOR CONCERNS OF PORTAL VEIN THROMBOSIS PER HOSPITALIST. NO ORDERS GIVEN AT THIS TIME.
--- NOTE | 2020-01-19 11:07 | NUR ---
PATIENT REPORTING THAT HIS PAIN IS BACK UP TO A 7/10 AFTER THE IV MORPHINE. TOO SOON FOR IV PAIN MEDICATION. PATIENT GIVEN A WARM BLANKET AND PO NORCO. PATIENT DENIES NAUSEA AT THIS TIME. WILL CONTINUE TO MONITOR.
[2020-01-19 12:00] VITALS: BP 101/66; PULSE 80; TEMP 98.3
[2020-01-19 16:00] VITALS: BP 98/67; PULSE 71; TEMP 98
--- NOTE | 2020-01-19 19:00 | NUR ---
PATIENTS DIET ADVANCED THIS AFTERNOON. PATIENT REPORTS THAT HIS PAIN INCREASED WITH EATING BUT DENIES INCREASE IN NAUSEA OR VOMITING. PATIENT OTHERWISE HAD UNEVENTFUL DAY. PAIN MEDICATIONS GIVEN NEEDED DURING MY SHIFT. BEDSIDE REPORT GIVEN TO JOVITA JORDAN.
[2020-01-19 19:30] LABS: COLLECTION METHOD CLEAN CATCH
[2020-01-19 19:35] LABS: PH 6 (5-8); SQUAMOUS EPITHELIAL None Seen /hpf; URINE APPEARANCE Clear; URINE BACTERIA None Seen /hpf; URINE BILIRUBIN Negative (NEGATIVE); URINE BLOOD Negative (NEGATIVE); URINE COLOR Yellow; URINE GLUCOSE Negative (NEGATIVE); URINE KETONE Trace (NEGATIVE); URINE LEUKOCYTE ESTERASE Negative (NEGATIVE); URINE NITRATE Negative (NEGATIVE); URINE PROTEIN(semi-quant) Negative (NEGATIVE); URINE RBC 0-2 /hpf; URINE UROBILINOGEN Negative (NEGATIVE)
--- NOTE | 2020-01-19 20:15 | NUR ---
Pt. sitting up in bed at this time. Pt. is A&OX3, assessment complete. IV to lt. forearm patent, IV fluids infusing per orders. Pt. reports abd. pain at a 8 on pain scale, gave pain meds per orders. Pt. denies further needs, call light within reach.
[2020-01-19 20:58] VITALS: BP 103/71; PULSE 78; TEMP 98.2
[2020-01-20 00:56] VITALS: BP 114/76; PULSE 70; TEMP 97.4
[2020-01-20 04:23] VITALS: BP 103/67; PULSE 75; TEMP 97.5
[2020-01-20 07:50] VITALS: BP 112/78; PULSE 82; TEMP 98.3
--- NOTE | 2020-01-20 09:50 | NUR ---
Patient alert and oriented, answers questions appropriately. See assessment. Abdomen soft, non tender, non distended. Bowel sounds active x4 quads. +Flatus. +Bowel movement. No c/o at this time.
[2020-01-20] MEDS ORDERED: ELIQUIS 5MG PO (10:09)
[2020-01-20] MEDS ORDERED: ZOFRAN 4MG T4 MG/TAB PO (10:09)
--- NOTE | 2020-01-20 11:56 | NUR ---
Discharge instructions reveiwed with patient, verbalized understanding. Discharged via wheelchair to auto/home with family at 1150.
--- NOTE | 2020-01-20 13:16 | NUR ---
Plans to return home with EX Marce . SW az with patient in room about dc plan. Patient reports that he resides in [place]. Patient reports that his ex- helps support him in his care needs. PCP is Dr. Cerda and last appointment was two weeks ago. Patient reports that he does not use any DME. Obtains rx [facility]. Patient denies any needs from correction or home assist, denies having POA, and does not have any concerns with medications or transportation. Patient reports haing [facility] care. No-follows.
== END 2020-01-20 11:50 | disposition home or self-care (01) | DRG 438 ==
LOC: COL.ER 11:24 → SURG 14:42
PROVIDERS: Nurse Practitioner; ADMIT Internal Medicine
DX: K85.20 Alcohol induced acute pancreatitis without necrosis or infection (principal); I81 Portal vein thrombosis; K86.1 Other chronic pancreatitis; J44.9 Chronic obstructive pulmonary disease, unspecified; F41.9 Anxiety disorder, unspecified; K21.9 Gastro-esophageal reflux disease without esophagitis; F17.210 Nicotine dependence, cigarettes, uncomplicated; F10.10 Alcohol abuse, uncomplicated
CPT/HCPCS: 99222-AI; 99232-AI; 99239; J0696; J1170; J1650; J2270; J2405; J2550; J7030; Q9967

== ENCOUNTER → 2020-02-22 | Outpatient (CLI) | payer OTHER ==
[~2020-02-22] MED LIST changes: +ELIQUIS 5MG PO
[2020-02-22 12:58] LABS: BASO # 0.1 (0.0-0.2); BASO % 0.9 % (0.0-2.0); EOS # 0.4 (0.0-0.7); EOS % 3.4 % (0-4.0); GRAN # 8.2 (1.4-6.5); GRAN % 69.3 % (42.2-75.2); HEMATOCRIT 42.5 % (42.0-52.0); HEMOGLOBIN 13.4 g/dl (13.5-18.0); LYMPH % 17.3 % (20.0-51.0); MEAN CELL VOLUME 77 fl (80.0-100.0); MEAN CORPUSCULAR HEMOGLOBIN 24 pg (27.0-31.0); MEAN CORPUSCULAR HGB CONC 32 g/dl (33.0-37.0); MEAN PLATELET VOLUME 8.1 fl (7.4-10.4); MONO % 8.7 % (1.7-9.3); PLATELET COUNT 370 K/mm3 (130-400); RED BLOOD COUNT 5.55 M/mm3 (4.20-5.60); REDCELL DISTRIBUTION WIDTH-CV 16.7 % (11.5-14.5)
[2020-02-22 13:06] LABS: ALBUMIN 4.5 gm/dL (3.5-5.0); BILIRUBIN,TOTAL 0.7 mg/dL (0.0-1.0); CALCIUM 9.6 mg/dL (8.4-10.2); CREATININE, serum 0.7 (0.66-1.25); POTASSIUM 3.9 mmol/L (3.4-5.0); TOTAL PROTEIN 8.1 gm/dL (6.4-8.2)
== END ==
LOC: COL.LAB 12:24
DX: R10.11 Right upper quadrant pain (principal)

== ENCOUNTER 2020-04-02 09:12 | Emergency (ER) | payer OTHER ==
[~2020-04-02] VITALS: Ht 177.8 cm; Wt 70.5 kg
[2020-04-02 09:18] VITALS: TEMP 98.3
[2020-04-02] MEDS ORDERED: ILOTYCIN5 MG/GM OP (09:42)
[2020-04-02 09:50] VITALS: BP 127/66; PULSE 80
== END 2020-04-02 09:50 | disposition home or self-care (01) ==
LOC: COL.ER 09:12
DX: S05.02XA Injury of conjunctiva and corneal abrasion without foreign body, left eye, initial encounter (principal); F17.210 Nicotine dependence, cigarettes, uncomplicated; Z79.01 Long term (current) use of anticoagulants; X58.XXXA Exposure to other specified factors, initial encounter

== ENCOUNTER → 2020-05-02 | Outpatient (CLI) | payer OTHER ==
[~2020-05-02] MED LIST changes: +HYDROCORTISONE30 GM RC; +ILOTYCIN5 MG/GM OP; +NORCO 325 MG-7.1 TAB PO; +PERCOCET 325 MG1 TA3 PO; +ROXICODONE 55 MG/TAB PO; +SURFAK 240240 MG/CAP PO; +ZOFRAN ODT4 MG PO
== END ==
LOC: COL.RAD
DX: K86.3 Pseudocyst of pancreas (principal); K86.1 Other chronic pancreatitis; K83.8 Other specified diseases of biliary tract; K29.80 Duodenitis without bleeding; I86.4 Gastric varices; Z90.49 Acquired absence of other specified parts of digestive tract
CPT/HCPCS: Q9967

== ENCOUNTER 2020-05-27 15:39 | Emergency (ER) | payer OTHER ==
[~2020-05-27] VITALS: Ht 177.8 cm; Wt 70.5 kg
[~2020-05-27 15:39] MED LIST changes: -HYDROCORTISONE30 GM RC; -NORCO 325 MG-7.1 TAB PO; -PERCOCET 325 MG1 TA3 PO; -ROXICODONE 55 MG/TAB PO; -SURFAK 240240 MG/CAP PO; -ZOFRAN ODT4 MG PO
[2020-05-27 16:08] VITALS: BP 140/98; TEMP 97.1
[2020-05-27 16:42] LABS: BASO # 0.1 (0.0-0.2); BASO % 0.8 % (0.0-2.0); EOS # 0.4 (0.0-0.7); EOS % 3.7 % (0-4.0); GRAN # 6.6 (1.4-6.5); GRAN % 67.1 % (42.2-75.2); HEMOGLOBIN 13.1 g/dl (13.5-18.0); LYMPH # 1.9 (1.2-3.4); LYMPH % 19.3 % (20.0-51.0); MEAN CELL VOLUME 78 fl (80.0-100.0); MEAN CORPUSCULAR HEMOGLOBIN 24 pg (27.0-31.0); MEAN CORPUSCULAR HGB CONC 31 g/dl (33.0-37.0); MONO # 0.9 (0.1-0.6); MONO % 8.8 % (1.7-9.3); PLATELET COUNT 356 K/mm3 (130-400); RED BLOOD COUNT 5.39 M/mm3 (4.20-5.60)
[2020-05-27 16:49] LABS: INR 1.2 (0.8-3.0); PROTHROMBIN TIME 13.7 SECONDS (9.7-12.8)
[2020-05-27 16:52] LABS: PARTIAL THROMBOPLASTIN TIME 36.6 SECONDS (26.0-37.0)
[2020-05-27 16:59] LABS: ALANINE AMINOTRANSFERASE 21 U/L (4-49); ALBUMIN 4.2 gm/dL (3.5-5.0); ALKALINE PHOSPHATASE 147 U/L (50-136); ANION GAP 10 mmol/L (7-16); AST,SGOT 23 U/L (15-37); BILIRUBIN,TOTAL 0.1 mg/dL (0.0-1.0); BLOOD UREA NITROGEN 4 mg/dL (9-20); CALCIUM 9.1 mg/dL (8.4-10.2); CARBON DIOXIDE 28 mmol/L (22-30); CHLORIDE 99 mmol/L (98-107); GLUCOSE 103 mg/dL (74-106); LIPASE 453 U/L (23-300); POTASSIUM 3.6 mmol/L (3.4-5.0); SODIUM 137 mmol/L (137-145); TOTAL PROTEIN 7.9 gm/dL (6.4-8.2)
[2020-05-27 17:20] LABS: TROPONIN-I < 0.012 ng/mL (0.000-0.035)
[2020-05-27] MEDS ORDERED: SURFAK 240240 MG/CAP PO (18:43)
[2020-05-27] MEDS ORDERED: HYDROCORTISONE30 GM RC (18:43)
[2020-05-27] MEDS ORDERED: ROXICODONE 55 MG/TAB PO (18:44)
[2020-05-27 18:57] VITALS: PULSE 81
== END 2020-05-27 19:00 | disposition home or self-care (01) ==
LOC: COL.ER 15:39
PROVIDERS: Emergency Medicine
DX: K85.90 Acute pancreatitis without necrosis or infection, unspecified (principal); K86.1 Other chronic pancreatitis; K64.9 Unspecified hemorrhoids; Z95.9 Presence of cardiac and vascular implant and graft, unspecified; Z79.01 Long term (current) use of anticoagulants; Z20.822 Contact with and (suspected) exposure to COVID-19
CPT/HCPCS: J2270; J2405; Q9967

== ENCOUNTER → 2020-07-09 | Outpatient (CLI) | payer OTHER ==
[~2020-07-09] MED LIST changes: +HYDROCORTISONE30 GM RC; +NORCO 325 MG-7.1 TAB PO; +PERCOCET 325 MG1 TA3 PO; +ROXICODONE 55 MG/TAB PO; +SURFAK 240240 MG/CAP PO; +ZOFRAN ODT4 MG PO
== END ==
LOC: COL.RAD 07:37
DX: K86.1 Other chronic pancreatitis (principal); I81 Portal vein thrombosis
CPT/HCPCS: Q9967

== ENCOUNTER 2020-07-18 12:01 | Emergency (ER) | payer OTHER ==
[~2020-07-18] VITALS: Ht 177.8 cm; Wt 72.7 kg
[~2020-07-18 12:01] MED LIST changes: -NORCO 325 MG-7.1 TAB PO; -PERCOCET 325 MG1 TA3 PO; -ZOFRAN ODT4 MG PO
[2020-07-18 13:26] LABS: BASO # 0.1 (0.0-0.2); BASO % 0.8 % (0.0-2.0); EOS # 0.2 (0.0-0.7); EOS % 1.5 % (0-4.0); GRAN # 9.2 (1.4-6.5); GRAN % 75.1 % (42.2-75.2); HEMATOCRIT 45.3 % (42.0-52.0); HEMOGLOBIN 14.9 g/dl (13.5-18.0); LYMPH # 1.6 (1.2-3.4); LYMPH % 13.4 % (20.0-51.0); MEAN CELL VOLUME 77 fl (80.0-100.0); MEAN CORPUSCULAR HEMOGLOBIN 25 pg (27.0-31.0); MEAN CORPUSCULAR HGB CONC 33 g/dl (33.0-37.0); MEAN PLATELET VOLUME 8.4 fl (7.4-10.4); MONO # 1.1 (0.1-0.6); MONO % 8.7 % (1.7-9.3); PLATELET COUNT 413 K/mm3 (130-400); RED BLOOD COUNT 5.87 M/mm3 (4.20-5.60); REDCELL DISTRIBUTION WIDTH-CV 19.1 % (11.5-14.5)
[2020-07-18 13:38] LABS: ALBUMIN 4.5 gm/dL (3.5-5.0); CALCIUM 9.4 mg/dL (8.4-10.2); CREATININE, serum 0.53 (0.66-1.25); POTASSIUM 3.9 mmol/L (3.4-5.0); TOTAL PROTEIN 7.8 gm/dL (6.4-8.2)
[2020-07-18] MEDS ORDERED: ZOFRAN ODT4 MG PO (16:13)
[2020-07-18] MEDS ORDERED: PERCOCET 325 MG1 TA3 PO (16:13)
[2020-07-18 16:27] VITALS: BP 118/64; PULSE 74; TEMP 97.8
== END 2020-07-18 16:29 | disposition home or self-care (01) ==
LOC: COL.ER 12:01
PROVIDERS: Physician Assistant
DX: K86.1 Other chronic pancreatitis (principal); F17.210 Nicotine dependence, cigarettes, uncomplicated; Z90.49 Acquired absence of other specified parts of digestive tract; Z96.89 Presence of other specified functional implants
CPT/HCPCS: J1170; J1885; J2405; J7030; Q9967

== ENCOUNTER 2020-08-20 18:08 | Emergency (ER) | payer OTHER ==
[~2020-08-20] VITALS: Ht 177.8 cm; Wt 68.2 kg
[~2020-08-20 18:08] MED LIST changes: +PERCOCET 325 MG1 TA3 PO; +ZOFRAN ODT4 MG PO
[2020-08-20 18:39] LABS: BASO # 0.1 (0.0-0.2); BASO % 0.7 % (0.0-2.0); EOS # 0.5 (0.0-0.7); EOS % 4.2 % (0-4.0); GRAN # 8.4 (1.4-6.5); GRAN % 66.2 % (42.2-75.2); HEMATOCRIT 45.1 % (42.0-52.0); HEMOGLOBIN 14.2 g/dl (13.5-18.0); LYMPH # 2.4 (1.2-3.4); LYMPH % 19.3 % (20.0-51.0); MEAN CELL VOLUME 81 fl (80.0-100.0); MEAN CORPUSCULAR HEMOGLOBIN 25 pg (27.0-31.0); MEAN CORPUSCULAR HGB CONC 32 g/dl (33.0-37.0); MEAN PLATELET VOLUME 8.4 fl (7.4-10.4); MONO # 1.2 (0.1-0.6); MONO % 9.3 % (1.7-9.3); PLATELET COUNT 345 K/mm3 (130-400); RED BLOOD COUNT 5.59 M/mm3 (4.20-5.60); REDCELL DISTRIBUTION WIDTH-CV 18.7 % (11.5-14.5)
[2020-08-20 18:52] LABS: ALBUMIN 4.4 gm/dL (3.5-5.0); BILIRUBIN,TOTAL 0.6 mg/dL (0.0-1.0); C-REACTIVE PROTEIN 2.8 mg/dL (0.0-0.9); CALCIUM 9.2 mg/dL (8.4-10.2); CREATININE, serum 0.56 (0.66-1.25); POTASSIUM 3.6 mmol/L (3.4-5.0); TOTAL PROTEIN 7.6 gm/dL (6.4-8.2)
[2020-08-20] MEDS ORDERED: NORCO 325 MG-7.1 TAB PO ×2 (22:11→22:36)
[2020-08-20 22:42] VITALS: BP 116/81; PULSE 77; TEMP 98.7
== END 2020-08-20 22:42 | disposition home or self-care (01) ==
LOC: COL.ER 18:08
PROVIDERS: Physician Assistant
DX: K85.90 Acute pancreatitis without necrosis or infection, unspecified (principal); K86.1 Other chronic pancreatitis; Z86.718 Personal history of other venous thrombosis and embolism; Z79.01 Long term (current) use of anticoagulants
CPT/HCPCS: J1170; J2405; J2550; J7030

== ENCOUNTER → 2020-09-23 | Outpatient (CLI) | payer OTHER ==
[~2020-09-23] MED LIST changes: +NORCO 325 MG-7.1 TAB PO
== END ==
LOC: MC.RAD 07:54
DX: N63.10 Unspecified lump in the right breast, unspecified quadrant (principal); R59.0 Localized enlarged lymph nodes

== ENCOUNTER 2020-11-06 13:54 | Emergency (ER) | payer OTHER ==
[~2020-11-06] VITALS: Ht 177.8 cm; Wt 68.2 kg
[2020-11-06 14:27] VITALS: TEMP 97.3
[2020-11-06 15:14] LABS: BASO # 0.1 (0.0-0.2); BASO % 1.2 % (0.0-2.0); EOS # 0.3 (0.0-0.7); EOS % 2.9 % (0-4.0); GRAN # 7.1 (1.4-6.5); GRAN % 68.7 % (42.2-75.2); HEMATOCRIT 45.1 % (42.0-52.0); HEMOGLOBIN 14.8 g/dl (13.5-18.0); LYMPH # 1.9 (1.2-3.4); LYMPH % 18.1 % (20.0-51.0); MEAN CELL VOLUME 79 fl (80.0-100.0); MEAN CORPUSCULAR HEMOGLOBIN 26 pg (27.0-31.0); MEAN CORPUSCULAR HGB CONC 33 g/dl (33.0-37.0); MEAN PLATELET VOLUME 9.6 fl (7.4-10.4); MONO # 0.9 (0.1-0.6); MONO % 8.7 % (1.7-9.3); PLATELET COUNT 213 K/mm3 (130-400); RED BLOOD COUNT 5.69 M/mm3 (4.20-5.60); REDCELL DISTRIBUTION WIDTH-CV 16.4 % (11.5-14.5)
[2020-11-06 16:12] LABS: ALANINE AMINOTRANSFERASE 13 U/L (4-49); ALBUMIN 4.1 gm/dL (3.5-5.0); ALKALINE PHOSPHATASE 96 U/L (50-136); ANION GAP 6 mmol/L (7-16); AST,SGOT 19 U/L (15-37); BILIRUBIN,TOTAL 0.5 mg/dL (0.0-1.0); BLOOD UREA NITROGEN 3 mg/dL (9-20); CALCIUM 8.6 mg/dL (8.4-10.2); CARBON DIOXIDE 28 mmol/L (22-30); CHLORIDE 102 mmol/L (98-107); CREATINE KINASE 67 U/L (55-170); GLUCOSE 105 mg/dL (74-106); LIPASE 349 U/L (23-300); SODIUM 137 mmol/L (137-145); TOTAL PROTEIN 7.1 gm/dL (6.4-8.2)
[2020-11-06 16:24] LABS: TROPONIN-I < 0.012 ng/mL (0.000-0.035)
[2020-11-06 18:50] VITALS: BP 133/93; PULSE 74
== END 2020-11-06 18:53 | disposition home or self-care (01) ==
LOC: COL.ER 13:54
PROVIDERS: Emergency Medicine
DX: K85.90 Acute pancreatitis without necrosis or infection, unspecified (principal); K86.1 Other chronic pancreatitis; J44.9 Chronic obstructive pulmonary disease, unspecified; Z79.899 Other long term (current) drug therapy
CPT/HCPCS: J1170; J2405; J7030; Q9967

== ENCOUNTER → 2020-12-20 | Outpatient (CLI) | payer OTHER | LOC: ZCOL.LAB 09:00 | DX: Z20.822 Contact with and (suspected) exposure to COVID-19 (principal) ==

== ENCOUNTER 2021-01-06 11:58 | Emergency (ER) | payer OTHER ==
[~2021-01-06] VITALS: Ht 177.8 cm; Wt 68.2 kg
[2021-01-06 12:42] VITALS: TEMP 99.1
[2021-01-06 13:07] LABS: BASO # 0.1 K/mm3 (0.0-0.2); BASO % 0.7 % (0.0-2.0); EOS # 0.3 K/mm3 (0.0-0.7); EOS % 2.1 % (0-4.0); GRAN # 9.5 K/mm3 (1.4-6.5); GRAN % 75.2 % (42.2-75.2); HEMATOCRIT 44.8 % (42.0-52.0); HEMOGLOBIN 14.7 g/dl (13.5-18.0); LYMPH # 1.8 K/mm3 (1.2-3.4); LYMPH % 14.6 % (20.0-51.0); MEAN CELL VOLUME 82 fl (80.0-100.0); MEAN CORPUSCULAR HEMOGLOBIN 27 pg (27.0-31.0); MEAN CORPUSCULAR HGB CONC 33 g/dl (33.0-37.0); MEAN PLATELET VOLUME 8.6 fl (7.4-10.4); MONO # 0.9 K/mm3 (0.1-0.6); MONO % 7.1 % (1.7-9.3); PLATELET COUNT 320 K/mm3 (130-400); RED BLOOD COUNT 5.49 M/mm3 (4.20-5.60); REDCELL DISTRIBUTION WIDTH-CV 15.5 % (11.5-14.5)
[2021-01-06 13:30] LABS: ALBUMIN 4.2 gm/dL (3.5-5.0); BILIRUBIN,TOTAL 0.5 mg/dL (0.2-1.2); CALCIUM 9.5 mg/dL (8.4-10.2); CREATININE, serum 0.78 mg/dL (0.72-1.25); POTASSIUM 4.3 mmol/L (3.5-4.5); TOTAL PROTEIN 7.7 gm/dL (6.2-8.1)
[2021-01-06 15:33] VITALS: BP 140/90; PULSE 80
== END 2021-01-06 15:35 | disposition home or self-care (01) ==
LOC: COL.ER 11:58
PROVIDERS: Emergency Medicine
DX: K86.1 Other chronic pancreatitis (principal); D72.829 Elevated white blood cell count, unspecified; Z96.89 Presence of other specified functional implants; Z90.49 Acquired absence of other specified parts of digestive tract
CPT/HCPCS: J1170; J2270; J2405; J7030; Q9967

== ENCOUNTER → 2022-05-29 | Outpatient (CLI) | payer MEDICARE, OTHER | LOC: COL.RAD 07:57 | DX: J43.2 Centrilobular emphysema (principal); R91.8 Other nonspecific abnormal finding of lung field; I81 Portal vein thrombosis ==

== ENCOUNTER 2023-10-26 20:50 | Emergency (ER) | payer MEDICARE, OTHER ==
[~2023-10-26] VITALS: Ht 177.8 cm; Wt 63.6 kg
[2023-10-26 20:53] VITALS: TEMP 98.7
[2023-10-26 23:05] LABS: BASO # 0.1 K/mm3 (0.0-0.2); BASO % 0.7 % (0.0-2.0); EOS # 0.5 K/mm3 (0.0-0.7); EOS % 4.4 % (0.0-4.0); GRAN # 6.4 K/mm3 (1.4-6.5); GRAN % 59.6 % (42.2-75.2); HEMATOCRIT 43.8 % (42.0-52.0); HEMOGLOBIN 13.8 g/dl (13.5-18.0); LYMPH # 2.5 K/mm3 (1.2-3.4); LYMPH % 23.2 % (20.0-51.0); MEAN CELL VOLUME 84 fl (80.0-100.0); MEAN CORPUSCULAR HEMOGLOBIN 27 pg (27-31); MEAN CORPUSCULAR HGB CONC 32 g/dl (33.0-37.0); MEAN PLATELET VOLUME 8.9 fl (7.4-10.4); MONO # 1.3 K/mm3 (0.1-0.6); MONO % 11.7 % (1.7-9.3); PLATELET COUNT 211 K/mm3 (130-400); REDCELL DISTRIBUTION WIDTH-CV 14.6 % (11.5-14.5)
[2023-10-26 23:11] LABS: INR 1.3 (0.8-3.0); PROTHROMBIN TIME 13.7 SECONDS (9.7-12.8)
[2023-10-26 23:14] LABS: PARTIAL THROMBOPLASTIN TIME 35.8 SECONDS (26.0-37.0)
[2023-10-26 23:26] LABS: ALANINE AMINOTRANSFERASE 26 U/L (0-55); ALBUMIN 3.9 g/dL (3.5-5.0); ALKALINE PHOSPHATASE 88 U/L (40-150); ANION GAP 13 mmol/L (7-16); AST,SGOT 25 U/L (5-34); BILIRUBIN,TOTAL 0.6 mg/dL (0.2-1.2); BLOOD UREA NITROGEN 6 mg/dL (8-26); CALCIUM 9.2 mg/dL (8.4-10.2); CHLORIDE 102 mEq/L (98-107); CREATININE, serum 1.01 mg/dL (0.72-1.25); GLUCOSE 82 mg/dL (70-99); LIPASE 23 U/L (8-78); POTASSIUM 3.9 mEq/L (3.5-4.5); SODIUM 139 mEq/L (136-145); TOTAL PROTEIN 7.3 g/dl (6.2-8.1)
[2023-10-26 23:33] LABS: TROPONIN-I < 0.010 ng/mL (0.00-0.033)
[2023-10-27] MEDS ORDERED: Ketorolac 15 MG/ML VIAL IV ONE (00:15)
[2023-10-27 00:45] VITALS: BP 105/72; PULSE 67
== END 2023-10-27 00:45 | disposition home or self-care (01) ==
LOC: COL.ER 20:50
PROVIDERS: Emergency Medicine
DX: K85.90 Acute pancreatitis without necrosis or infection, unspecified (principal); K86.1 Other chronic pancreatitis
CPT/HCPCS: J1885

== ENCOUNTER → 2023-10-27 | Outpatient (CLI) | payer MEDICARE, OTHER | LOC: COL.RAD 07:33 | DX: M79.606 Pain in leg, unspecified (principal) ==